=== PATIENT | female | born 1950 | race African-American/Black ===

== ENCOUNTER 2022-08-23 14:18 | Inpatient (IN) | payer MEDICARE, MEDICAID ==
[~2022-08-23] VITALS: Ht 157.5 cm; Wt 56.7 kg
[2022-08-23 17:09] LABS: BASOPHILS % 0.5 % (0.0-2.0); EOSINOPHILS % 0.8 % (0.0-5.0); HEMATOCRIT. 38.4 % (36.0-48.0); HEMOGLOBIN. 12.9 g/dL (12.0-16.0); LYMPHOCYTES % 13.6 % (20.0-50.0); MEAN CORPUSCULAR HEMOGLOBIN 29.1 pg (28.0-32.0); MEAN CORPUSCULAR VOLUME 86.8 fL (81.0-99.0); NEUTROPHILS % 79.1 % (40.0-76.0); RED BLOOD CELL COUNT 4.42 mill/uL (4.2-5.4); RED CELL DISTRIBUTION WIDTH 20.3 % (11.6-14.6)
[2022-08-23 17:54] LABS: MEAN PLATELET VOLUME 7.5 fl (7.4-10.4); PLATELET 123 x1000/uL (130-400)
[2022-08-23 18:43] LABS: CHLORIDE 96 mEq/L (98-107); INR 1.3; PROTHROMBIN TIME 13.9 sec (9.6-11.0)
[2022-08-23 19:03] LABS: BETA HYDROXYBUTYRATE 0.6 mMol/L (0.0-0.3); ETHANOL BLOOD < 10 mg/dL
[2022-08-23] MEDS ORDERED: SODIUM CHLORIDE 0.9% 250 ML IV ONE (19:30)
[2022-08-23] MEDS ORDERED: PIPERACILLIN/TAZOBACTAM 3.375GM/50ML PREMIX IV ONE (19:30)
[2022-08-23] MEDS ORDERED: PIPERACILLIN/TAZ 3.375G PREMIX 50 ML IV NR (19:45)
[2022-08-23] MEDS ORDERED: NA PHOS,M-B/NA PHOS,DI-BA ENEMA 118ML PR PRN (22:15)
[2022-08-23] MEDS ORDERED: ACETAMINOPHEN 325MG TABLET PO PRN ×2 (22:15)
[2022-08-23] MEDS ORDERED: GUAIFENESIN 200MG/10ML SUGAR FREE UDC PO PRN (22:15)
[2022-08-23] MEDS ORDERED: ENOXAPARIN 40MG/0.4ML SYR SUBCUT SCH (22:15)
[2022-08-23] MEDS ORDERED: DEXTROSE 50% WATER 50ML SYRINGE IV PRN (22:15)
[2022-08-23] MEDS ORDERED: IPRATROPIUM/ALBUTEROL 0.5-3(2.5)MG/3ML NEB HHN PRN (22:15)
[2022-08-23] MEDS ORDERED: CLONIDINE 0.1MG TABLET PO PRN (22:15)
[2022-08-23] MEDS ORDERED: ONDANSETRON HCL 4MG/2ML INJ IV PRN (22:15)
[2022-08-23] MEDS ORDERED: MAGNESIUM/ALUMINUM HYDROXIDE/SIMETHICONE 30ML UDC PO PRN (22:15)
[2022-08-23] MEDS ORDERED: LOSA25TA26 PO (22:24)
[2022-08-23] MEDS ORDERED: ASPI-1406 PO (22:24)
[2022-08-23] MEDS ORDERED: AMLO5TAB88 PO (22:24)
[2022-08-23] MEDS: AMLODIPINE 5MG TABLET PO SCH (22:30)
[2022-08-23] MEDS ORDERED: DOCUSATE SODIUM 100MG CAPSULE PO SCH (22:30)
[2022-08-23] MEDS ORDERED: SODIUM CHLORIDE 0.9% 1,000 ML IV SCH (22:30)
[2022-08-23 23:02] VITALS: BP 118/55
[2022-08-23] MEDS ORDERED: LABE200T9 PO (23:14)
[2022-08-23] MEDS: ENOXAPARIN 30MG/0.3ML SYR SUBCUT SCH (23:53)
[2022-08-23] MEDS: FAMOTIDINE 20MG TABLET PO SCH (23:53)
[2022-08-23] MEDS: ASPIRIN 81MG TABLET PO SCH (23:54)
[2022-08-24] VITALS: BP 118/55
[2022-08-24 00:08] LABS: T4 FREE 1.81 ng/dL (0.76-1.46)
[2022-08-24 00:46] LABS: HEPATITIS B SURFACE ANTIGEN NEGATIVE
[2022-08-24] MEDS ORDERED: VANCOMYCIN 1G PREMIX 200 ML IV NR ×2 (03:00→09:00)
[2022-08-24 04:00] VITALS: BP 124/71
[2022-08-24] MEDS ORDERED: LIDOCAINE HCL 1% 10 MG/ML 10ML VIAL ONE (07:18)
[2022-08-24 08:00] VITALS: BP 137/76
[2022-08-24] MEDS: INSULIN LISPRO 100 UNITS/ML SUBCUT SCH ×4 (08:20→20:55)
[2022-08-24] MEDS: BLOOD SUGAR DIAGNOSTIC STRIP TEST SCH ×4 (09:00→20:53)
[2022-08-24] MEDS: LOSARTAN POTASSIUM 25 MG TABLET PO SCH (09:28)
[2022-08-24] MEDS: ASPIRIN 81MG TABLET PO SCH (09:29)
[2022-08-24] MEDS: AMLODIPINE 5MG TABLET PO SCH (09:29)
[2022-08-24 09:38] LABS: HEMATOCRIT. 38.2 % (36.0-48.0); HEMOGLOBIN. 12.4 g/dL (12.0-16.0); MEAN CORPUSCULAR HEMOGLOBIN 28.4 pg (28.0-32.0); MEAN CORPUSCULAR VOLUME 87.1 fL (81.0-99.0); MEAN PLATELET VOLUME 8.6 fl (7.4-10.4); PLATELET 106 x1000/uL (130-400); RED BLOOD CELL COUNT 4.38 mill/uL (4.2-5.4); RED CELL DISTRIBUTION WIDTH 20.4 % (11.6-14.6)
[2022-08-24] MEDS ORDERED: ACETAMINOPHEN 325MG TABLET PO PRN (10:15)
[2022-08-24 10:28] LABS: NUCLEATED RED BLOOD CELLS 1 /100 WBC
[2022-08-24 10:29] LABS: PLATELET ESTIMATE DECREASED
[2022-08-24] MEDS: PIPERACILLIN/TAZOBACTAM 3.375 G in DEXTROSE 5% WATER 50 ML IV SCH ×2 (13:38→21:07)
[2022-08-24 16:00] VITALS: BP 127/73
[2022-08-24 18:08] LABS: HEPATITIS B SURFACE ANTIGEN NEGATIVE
[2022-08-24 20:00] VITALS: BP 141/64
[2022-08-24] MEDS: ENOXAPARIN 30MG/0.3ML SYR SUBCUT SCH (21:15)
[2022-08-25] VITALS (14 sets, daily range): BP systolic 108–153; BP diastolic 49–73
[2022-08-25] MEDS: BLOOD SUGAR DIAGNOSTIC STRIP TEST SCH ×4 (06:50→21:00)
[2022-08-25] MEDS: INSULIN LISPRO 100 UNITS/ML SUBCUT SCH ×4 (07:20→21:00)
[2022-08-25 07:50] LABS: INR 1.3; PROTHROMBIN TIME 14.1 sec (9.6-11.0)
[2022-08-25 07:58] LABS: BASOPHILS % 0.4 % (0.0-2.0); EOSINOPHILS % 0.9 % (0.0-5.0); HEMATOCRIT. 32.1 % (36.0-48.0); HEMOGLOBIN. 10.9 g/dL (12.0-16.0); LYMPHOCYTES % 12.2 % (20.0-50.0); MEAN CORPUSCULAR HEMOGLOBIN 28.7 pg (28.0-32.0); MEAN CORPUSCULAR VOLUME 84.7 fL (81.0-99.0); MEAN PLATELET VOLUME 8.7 fl (7.4-10.4); MONOCYTES % 3.7 % (2.0-8.0); NEUTROPHILS % 82.8 % (40.0-76.0); PLATELET 100 x1000/uL (130-400); RED CELL DISTRIBUTION WIDTH 19.7 % (11.6-14.6)
[2022-08-25] MEDS: ASPIRIN 81MG TABLET PO SCH (09:00)
[2022-08-25] MEDS: PIPERACILLIN/TAZOBACTAM 3.375 G in DEXTROSE 5% WATER 50 ML IV SCH (12:02)
[2022-08-25] MEDS: LOSARTAN POTASSIUM 25 MG TABLET PO SCH (14:42)
[2022-08-25] MEDS: AMLODIPINE 5MG TABLET PO SCH (14:42)
[2022-08-25] MEDS: RIFAXIMIN 550 MG TABLET PO SCH (14:53)
[2022-08-25] MEDS: LACTULOSE 20G/30ML UDC PO SCH (14:53)
[2022-08-25] MEDS ORDERED: ACETAMINOPHEN 650MG/20.3ML UDC PO PRN (17:45)
[2022-08-25] MEDS: CARVEDILOL 3.125 MG TABLET PO SCH (21:00)
[2022-08-26] VITALS: BP 118/65
[2022-08-26] MEDS: PIPERACILLIN/TAZOBACTAM 3.375 G in DEXTROSE 5% WATER 50 ML IV SCH ×3 (00:17→21:03)
[2022-08-26] MEDS: ENOXAPARIN 30MG/0.3ML SYR SUBCUT SCH ×2 (00:20→20:59)
[2022-08-26] MEDS: FAMOTIDINE 20MG TABLET PO SCH (00:21)
[2022-08-26] MEDS: RIFAXIMIN 550 MG TABLET PO SCH ×3 (00:21→21:02)
[2022-08-26] MEDS: LACTULOSE 20G/30ML UDC PO SCH ×4 (00:23→20:59)
[2022-08-26 04:00] VITALS: BP 119/64
[2022-08-26] MEDS: BLOOD SUGAR DIAGNOSTIC STRIP TEST SCH ×4 (06:50→20:59)
[2022-08-26] MEDS: INSULIN LISPRO 100 UNITS/ML SUBCUT SCH ×4 (07:20→21:02)
[2022-08-26 07:25] LABS: HEMATOCRIT. 31.7 % (36.0-48.0); HEMOGLOBIN. 10.4 g/dL (12.0-16.0); MEAN CORPUSCULAR HEMOGLOBIN 27.8 pg (28.0-32.0); MEAN CORPUSCULAR VOLUME 84.8 fL (81.0-99.0); MEAN PLATELET VOLUME 8.9 fl (7.4-10.4); PLATELET 85 x1000/uL (130-400); RED BLOOD CELL COUNT 3.74 mill/uL (4.2-5.4); RED CELL DISTRIBUTION WIDTH 20.2 % (11.6-14.6)
[2022-08-26 08:00] VITALS: BP 148/78
[2022-08-26 08:05] LABS: PHOSPHORUS 2.1 mg/dL (2.5-4.9)
[2022-08-26] MEDS: CARVEDILOL 3.125 MG TABLET PO SCH ×2 (09:32→21:03)
[2022-08-26] MEDS: AMLODIPINE 5MG TABLET PO SCH (09:32)
[2022-08-26] MEDS: LOSARTAN POTASSIUM 25 MG TABLET PO SCH (09:32)
[2022-08-26] MEDS: ASPIRIN 81MG TABLET PO SCH (09:34)
[2022-08-26 12:00] VITALS: BP 136/79
[2022-08-26] MEDS ORDERED: VANCOMYCIN 750MG PREMIX 150 ML IV NR (12:00)
[2022-08-26 16:00] VITALS: BP 137/66
[2022-08-26 16:30] LABS: NUCLEATED RED BLOOD CELLS 1 /100 WBC
[2022-08-26 16:31] LABS: PLATELET ESTIMATE DECREASED
[2022-08-26 20:00] VITALS: BP 108/51
[2022-08-26 21:14] LABS: CLARITY URINE TURBID (CLEAR); COLOR URINE ORANGE (YELLOW); KETONES URINE NEGATIVE (NEGATIVE); LEUKOCYTE ESTERASE URINE 2+ (NEGATIVE); NITRITE URINE NEGATIVE (NEGATIVE); OCCULT BLOOD URINE 1+ (NEGATIVE); PH URINE 8.5 (4.5-8.0); PROTEIN URINE 1+ (NEGATIVE); SPECIFIC GRAVITY URINE 1.017 (1.005-1.030); UROBILINOGEN URINE 0.2 E.U./dL (0.2-1.0)
[2022-08-27] VITALS (8 sets, daily range): BP systolic 112–139; BP diastolic 58–88
[2022-08-27] MEDS: LACTULOSE 20G/30ML UDC PO SCH ×3 (05:25→21:25)
[2022-08-27] MEDS: BLOOD SUGAR DIAGNOSTIC STRIP TEST SCH ×4 (06:10→21:24)
[2022-08-27] MEDS: INSULIN LISPRO 100 UNITS/ML SUBCUT SCH ×4 (06:11→21:27)
[2022-08-27] MEDS: PIPERACILLIN/TAZOBACTAM 3.375 G in DEXTROSE 5% WATER 50 ML IV SCH ×2 (09:21→21:25)
[2022-08-27] MEDS: RIFAXIMIN 550 MG TABLET PO SCH ×2 (09:21→21:25)
[2022-08-27] MEDS: LOSARTAN POTASSIUM 25 MG TABLET PO SCH (09:21)
[2022-08-27] MEDS: AMLODIPINE 5MG TABLET PO SCH (09:21)
[2022-08-27] MEDS: ASPIRIN 81MG TABLET PO SCH (09:21)
[2022-08-27] MEDS: CARVEDILOL 3.125 MG TABLET PO SCH ×2 (09:21→21:26)
[2022-08-27 10:28] LABS: BASOPHILS % 0.9 % (0.0-2.0); EOSINOPHILS % 4.3 % (0.0-5.0); HEMATOCRIT. 32.7 % (36.0-48.0); HEMOGLOBIN. 10.8 g/dL (12.0-16.0); LYMPHOCYTES % 19.4 % (20.0-50.0); MEAN CORPUSCULAR VOLUME 84.9 fL (81.0-99.0); MEAN PLATELET VOLUME 8.9 fl (7.4-10.4); MONOCYTES % 9.6 % (2.0-8.0); NEUTROPHILS % 65.8 % (40.0-76.0); PLATELET 60 x1000/uL (130-400); RED BLOOD CELL COUNT 3.86 mill/uL (4.2-5.4); RED CELL DISTRIBUTION WIDTH 20.5 % (11.6-14.6)
[2022-08-27 10:56] LABS: PHOSPHORUS 2.8 mg/dL (2.5-4.9)
[2022-08-27] MEDS: FAMOTIDINE 20MG TABLET PO SCH (21:37)
[2022-08-28] VITALS: BP 123/62
[2022-08-28 04:00] VITALS: BP 139/54
[2022-08-28] MEDS: LACTULOSE 20G/30ML UDC PO SCH ×3 (05:55→21:20)
[2022-08-28 06:33] LABS: BASOPHILS % 0.9 % (0.0-2.0); EOSINOPHILS % 5.8 % (0.0-5.0); HEMATOCRIT. 34.6 % (36.0-48.0); HEMOGLOBIN. 11.1 g/dL (12.0-16.0); LYMPHOCYTES % 28.6 % (20.0-50.0); MEAN CORPUSCULAR HEMOGLOBIN 27.6 pg (28.0-32.0); MEAN PLATELET VOLUME 9.4 fl (7.4-10.4); MONOCYTES % 12.6 % (2.0-8.0); NEUTROPHILS % 52.1 % (40.0-76.0); RED BLOOD CELL COUNT 4.02 mill/uL (4.2-5.4); RED CELL DISTRIBUTION WIDTH 20.9 % (11.6-14.6)
[2022-08-28 06:40] LABS: PLATELET 47 x1000/uL (130-400)
[2022-08-28 06:41] LABS: CHLORIDE 102 mEq/L (98-107)
[2022-08-28 06:54] LABS: PHOSPHORUS 3.3 mg/dL (2.5-4.9)
[2022-08-28] MEDS: BLOOD SUGAR DIAGNOSTIC STRIP TEST SCH ×4 (07:06→21:12)
[2022-08-28 07:51] LABS: PLATELET ESTIMATE MARKEDLY DECREASED
[2022-08-28 08:00] VITALS: BP 130/67
[2022-08-28] MEDS: PIPERACILLIN/TAZOBACTAM 3.375 G in DEXTROSE 5% WATER 50 ML IV SCH (08:43)
[2022-08-28] MEDS: RIFAXIMIN 550 MG TABLET PO SCH ×2 (08:44→21:20)
[2022-08-28] MEDS: AMLODIPINE 5MG TABLET PO SCH (08:44)
[2022-08-28] MEDS: ASPIRIN 81MG TABLET PO SCH (08:44)
[2022-08-28] MEDS: CARVEDILOL 3.125 MG TABLET PO SCH ×2 (08:44→21:20)
[2022-08-28] MEDS: LOSARTAN POTASSIUM 25 MG TABLET PO SCH (08:44)
[2022-08-28] MEDS: INSULIN LISPRO 100 UNITS/ML SUBCUT SCH ×4 (08:45→21:23)
[2022-08-28 12:00] VITALS: BP 143/77
[2022-08-28] MEDS: METRONIDAZOLE 500MG TABLET PO SCH ×2 (13:08→21:20)
[2022-08-28] MEDS: CEFEPIME 1,000 MG in DEXTROSE 5% WATER 50 ML IV SCH (13:08)
[2022-08-28 16:00] VITALS: BP 136/69
[2022-08-28 20:00] VITALS: BP 123/53
[2022-08-29] VITALS: BP 113/61
[2022-08-29 04:00] VITALS: BP 125/62
[2022-08-29] MEDS: LACTULOSE 20G/30ML UDC PO SCH (06:59)
[2022-08-29] MEDS: BLOOD SUGAR DIAGNOSTIC STRIP TEST SCH ×2 (07:01→12:44)
[2022-08-29] MEDS: INSULIN LISPRO 100 UNITS/ML SUBCUT SCH ×2 (07:20→12:44)
[2022-08-29 07:41] LABS: BASOPHILS % 0.5 % (0.0-2.0); EOSINOPHILS % 7.6 % (0.0-5.0); HEMATOCRIT. 31.5 % (36.0-48.0); HEMOGLOBIN. 10.3 g/dL (12.0-16.0); LYMPHOCYTES % 31.4 % (20.0-50.0); MEAN CORPUSCULAR HEMOGLOBIN 27.8 pg (28.0-32.0); MEAN CORPUSCULAR VOLUME 85.2 fL (81.0-99.0); MEAN PLATELET VOLUME 9.9 fl (7.4-10.4); MONOCYTES % 13.1 % (2.0-8.0); NEUTROPHILS % 47.4 % (40.0-76.0); RED CELL DISTRIBUTION WIDTH 20.3 % (11.6-14.6)
[2022-08-29 07:52] LABS: PLATELET 39 x1000/uL (130-400)
[2022-08-29 08:00] VITALS: BP 140/79
[2022-08-29 08:12] LABS: CHLORIDE 103 mEq/L (98-107)
[2022-08-29 08:26] LABS: PHOSPHORUS 4.1 mg/dL (2.5-4.9)
[2022-08-29] MEDS: AMLODIPINE 5MG TABLET PO SCH (09:24)
[2022-08-29] MEDS: METRONIDAZOLE 500MG TABLET PO SCH (09:25)
[2022-08-29] MEDS: RIFAXIMIN 550 MG TABLET PO SCH (09:25)
[2022-08-29] MEDS: LOSARTAN POTASSIUM 25 MG TABLET PO SCH (09:25)
[2022-08-29] MEDS: CARVEDILOL 3.125 MG TABLET PO SCH (09:25)
[2022-08-29] MEDS: ASPIRIN 81MG TABLET PO SCH (09:27)
[2022-08-29 12:00] VITALS: BP 135/77
[2022-08-29] MEDS: CEFEPIME 1,000 MG in DEXTROSE 5% WATER 50 ML IV SCH (12:43)
[2022-08-29] MEDS ORDERED: LOSA25TA26 PO (14:13)
[2022-08-29] MEDS ORDERED: METR-167 PO (14:13)
[2022-08-29] MEDS ORDERED: COR3 PO (14:13)
[2022-08-29] MEDS ORDERED: AMLO5TAB88 PO (14:13)
[2022-08-29] MEDS ORDERED: RIFA550T PO (14:13)
[2022-08-29 14:26] LABS: HEPATITIS B SURFACE ANTIGEN NEGATIVE
[2022-08-29 16:00] VITALS: BP 114/88
[2022-08-29] MEDS ORDERED: LEVO-65 MT (16:51)
[2022-08-29 16:59] VITALS: BP 114/88
[2022-08-30] MEDS ORDERED: LOSARTAN POTASSIUM 50 MG TABLET PO SCH (09:00)
[2022-08-30] MEDS ORDERED: LACTULOSE 20G/30ML UDC PO SCH (09:00)
== END 2022-08-29 18:30 | disposition home health service (06) | DRG 871 ==
LOC: ER 14:18 → SUPCPDRO 20:34 → MICUSO 22:12 → 3WST 22:13
PROVIDERS: ADMIT Internal Medicine; ATTEND Internal Medicine
PROC: 02HV33Z Insertion of Infusion Device into Superior Vena Cava, Percutaneous Approach (ICD-10-PCS; principal; 2022-08-24)
PROC: B548ZZA Ultrasonography of Superior Vena Cava, Guidance (ICD-10-PCS; 2022-08-24)
PROC: B5181ZA Fluoroscopy of Superior Vena Cava using Low Osmolar Contrast, Guidance (ICD-10-PCS; 2022-08-24)
PROC: 5A1D70Z Performance of Urinary Filtration, Intermittent, Less than 6 Hours Per Day (ICD-10-PCS; 2022-08-25)
PROC: 5A1D70Z Performance of Urinary Filtration, Intermittent, Less than 6 Hours Per Day (ICD-10-PCS; 2022-08-27)
DX: A41.9 Sepsis, unspecified organism (principal); G93.41 Metabolic encephalopathy; I50.23 Acute on chronic systolic (congestive) heart failure; N18.6 End stage renal disease; K72.00 Acute and subacute hepatic failure without coma; I13.2 Hypertensive heart and chronic kidney disease with heart failure and with stage 5 chronic kidney disease, or end stage renal disease; I42.9 Cardiomyopathy, unspecified; B37.49 Other urogenital candidiasis; A09 Infectious gastroenteritis and colitis, unspecified; R65.20 Severe sepsis without septic shock; B18.2 Chronic viral hepatitis C; E11.22 Type 2 diabetes mellitus with diabetic chronic kidney disease; E11.65 Type 2 diabetes mellitus with hyperglycemia; I08.0 Rheumatic disorders of both mitral and aortic valves; D69.6 Thrombocytopenia, unspecified; Z99.2 Dependence on renal dialysis; E78.00 Pure hypercholesterolemia, unspecified; E80.6 Other disorders of bilirubin metabolism; K59.00 Constipation, unspecified; E78.5 Hyperlipidemia, unspecified; Z86.73 Personal history of transient ischemic attack (TIA), and cerebral infarction without residual deficits; Z86.39 Personal history of other endocrine, nutritional and metabolic disease; Z79.82 Long term (current) use of aspirin
CPT/HCPCS: 36415; 36573; 70551; 71045; 74176; 74181; 76700; 78580; 80048; 80053; 80061; 80076; 80202; 80320; 81003; 82010; 82140; 82248; 82550; 82962; 83036; 83605; 83735; 83880; 84100; 84145; 84439; 84443; 84484; 85025; 85379; 86705; 86709; 86803; 87340; 87493; 87517; 90935; 93306; 93880; 93970; 97162; 97166; 99291; C1725; C1769; C1893; J0692; J1650; J1815; J2543; J3370; J3490; J7050; J7060; G0480